=== PATIENT | male | born 1950 | race Hispanic/Latino ===

== ENCOUNTER 2017-01-27 08:28 | Outpatient (CLI) | payer MEDICARE ==
--- NOTE | 2017-01-29 14:03 | Fluoroscopy Report ---
Modified barium swallow: History: Parkinson. Findings: There is no anatomic obstruction to flow of liquids, semisolid and solid food through the cervical esophagus. Penetration is noted with liquids. The complete report will be provided by speech therapist. Impression: Findings as detailed above.
== END 2017-01-27 08:29 | disposition home or self-care (01) ==
LOC: PT 08:28
PROVIDERS: ATTEND Specialist
DX: G20 Parkinson's disease (principal)
CPT/HCPCS: 74230; 92611; G8996; G8997

== ENCOUNTER 2017-09-03 13:37 | Outpatient (CLI) | payer MEDICARE ==
--- NOTE | 2017-09-03 14:04 | XRay Report ---
Chest 2 views: History: Cough. Findings: Normal cardiomediastinal silhouette. Trachea is midline. No consolidation, pneumothorax or pleural effusion. Impression: No acute cardiopulmonary findings.
== END 2017-09-03 13:38 | disposition home or self-care (01) ==
LOC: XRAY 13:37
PROVIDERS: ATTEND Internal Medicine
DX: Z13.89 Encounter for screening for other disorder (principal); R05 Cough
CPT/HCPCS: 71046